=== PATIENT | male | born 1940 | race Caucasian/White ===

== ENCOUNTER 2020-05-08 10:25 | Outpatient (RCR) | payer MEDICARE, OTHER ==
[~2020-05-08 10:25] MED LIST: ASPIRIN E.C. 8181 MG PO; ELIQUIS 5MG PO; K-DUR 10 MEQ T10 MEQ PO; LASIX 20MG TABL20 MG PO; MOBIC15 MG PO; MULTAQ400 MG PO; PRINIVIL10 MG PO; TENORMIN 5050 MG/TAB PO; ZANTAC 150MG T150 MG PO
== END 2020-08-06 | disposition home or self-care (01) ==
LOC: WSST
DX: R13.10 Dysphagia, unspecified (principal)

== ENCOUNTER → 2020-05-29 | Outpatient (CLI) | payer MEDICARE, OTHER | LOC: COL.RAD 08:03 | DX: R13.10 Dysphagia, unspecified (principal) ==